=== PATIENT | male | born 1955 | race Caucasian/White ===

== ENCOUNTER 2017-04-14 00:18 | Emergency (ER) | payer OTHER ==
[~2017-04-14 00:18] MED LIST: CAT0.1 PO; INDOMETHACIN50 MG PO; LISINOPRIL20 MG PO; MEV20 PO; MOT800 PO; NOR10 PO; PRI20 PO; ZESTRIL20 MG PO; ZYL100 PO
[2017-04-14 02:49] VITALS: BP 170/90
== END 2017-04-14 02:49 | disposition home or self-care (01) ==
LOC: ED 00:18
DX: M10.071 Idiopathic gout, right ankle and foot (principal); M54.41 Lumbago with sciatica, right side; I10 Essential (primary) hypertension
CPT/HCPCS: J1885

== ENCOUNTER 2017-06-27 02:44 | Emergency (ER) | payer OTHER ==
[2017-06-27 03:58] LABS: CALCIUM 8.7 mg/dL (8.5-10.1); CARBON DIOXIDE 28.4 mmol/L (21-32); CREATININE SERUM 2.3 mg/dL (0.7-1.3); POTASSIUM SERUM 3.9 mmol/L (3.5-5.1)
[2017-06-27 04:30] VITALS: BP 164/98
== END 2017-06-27 04:30 | disposition home or self-care (01) ==
LOC: ED 02:44
PROVIDERS: Emergency Medicine
DX: M10.9 Gout, unspecified (principal); I12.9 Hypertensive chronic kidney disease with stage 1 through stage 4 chronic kidney disease, or unspecified chronic kidney disease; N18.9 Chronic kidney disease, unspecified
CPT/HCPCS: 36415; J1885; J7512

== ENCOUNTER 2017-08-15 03:13 | Emergency (ER) | payer OTHER ==
[2017-08-15 03:55] VITALS: BP 155/77
== END 2017-08-15 03:55 | disposition home or self-care (01) ==
LOC: ED 03:13
DX: T78.40XA Allergy, unspecified, initial encounter (principal); I10 Essential (primary) hypertension; X58.XXXA Exposure to other specified factors, initial encounter

== ENCOUNTER 2017-12-06 20:53 | Emergency (ER) | payer OTHER ==
[2017-12-06 22:43] VITALS: BP 143/85
== END 2017-12-06 22:43 | disposition home or self-care (01) ==
LOC: ED 20:53
DX: M10.062 Idiopathic gout, left knee (principal); M10.072 Idiopathic gout, left ankle and foot; M10.071 Idiopathic gout, right ankle and foot; I10 Essential (primary) hypertension
CPT/HCPCS: J1885

== ENCOUNTER 2018-06-11 00:03 | Emergency (ER) | payer MEDICAID ==
[~2018-06-11] VITALS: Ht 172.7 cm; Wt 107.0 kg
[2018-06-11 00:14] VITALS: Ht 172.7 cm; Wt 107.0 kg
[2018-06-11 04:15] VITALS: BP 149/88
== END 2018-06-11 04:15 | disposition home or self-care (01) ==
LOC: ED 00:03
DX: H05.221 Edema of right orbit (principal); H10.11 Acute atopic conjunctivitis, right eye; I10 Essential (primary) hypertension
CPT/HCPCS: J1200; J7512

== ENCOUNTER 2018-09-04 09:02 | Emergency (ER) | payer MEDICAID ==
[~2018-09-04] VITALS: Ht 172.7 cm; Wt 106.3 kg
[2018-09-04 10:34] VITALS: BP 151/88
== END 2018-09-04 10:34 | disposition home or self-care (01) ==
LOC: ED 09:02
DX: M10.062 Idiopathic gout, left knee (principal); I10 Essential (primary) hypertension
CPT/HCPCS: J1885; J2930

== ENCOUNTER 2018-10-21 21:57 | Emergency (ER) | payer OTHER ==
[~2018-10-21] VITALS: Ht 172.7 cm; Wt 103.6 kg
[2018-10-21 22:36] VITALS: BP 159/89
== END 2018-10-21 22:36 | disposition home or self-care (01) ==
LOC: ED 21:57
DX: H10.13 Acute atopic conjunctivitis, bilateral (principal); I10 Essential (primary) hypertension; M10.9 Gout, unspecified

== ENCOUNTER 2018-12-25 22:34 | Emergency (ER) | payer OTHER ==
[~2018-12-25] VITALS: Ht 175.3 cm; Wt 96.6 kg
[2018-12-25 22:42] VITALS: BP 156/85; Ht 175.3 cm; Wt 96.6 kg
== END 2018-12-26 00:28 | disposition left against medical advice (07) ==
LOC: ED 22:34
DX: Z53.21 Procedure and treatment not carried out due to patient leaving prior to being seen by health care provider (principal)

== ENCOUNTER 2019-03-01 08:27 | Emergency (ER) | payer OTHER | END 2019-03-01 11:05 | disposition home or self-care (01) | LOC: ED 08:27 ==

== ENCOUNTER 2019-08-08 10:03 | Emergency (ER) | payer OTHER ==
[~2019-08-08] VITALS: Ht 175.3 cm; Wt 88.0 kg
[2019-08-08 10:10] VITALS: Ht 175.3 cm; Wt 88.0 kg
[2019-08-08 13:41] VITALS: BP 135/86
== END 2019-08-08 13:41 | disposition home or self-care (01) ==
LOC: ED 10:03
DX: M10.9 Gout, unspecified (principal); I10 Essential (primary) hypertension
CPT/HCPCS: J1885

== ENCOUNTER 2019-09-04 11:11 | Emergency (ER) | payer OTHER ==
[~2019-09-04] VITALS: Ht 175.3 cm; Wt 88.9 kg
[2019-09-04 11:20] VITALS: Ht 175.3 cm; Wt 88.9 kg
[2019-09-04 13:14] VITALS: BP 168/82
== END 2019-09-04 13:14 | disposition home or self-care (01) ==
LOC: ED 11:11
DX: T63.391A Toxic effect of venom of other spider, accidental (unintentional), initial encounter (principal); I10 Essential (primary) hypertension; Y92.89 Other specified places as the place of occurrence of the external cause
CPT/HCPCS: J0696; J1885

== ENCOUNTER 2019-09-19 10:15 | Emergency (ER) | payer OTHER ==
[~2019-09-19] VITALS: Ht 175.3 cm; Wt 86.6 kg
[2019-09-19 10:29] VITALS: Ht 175.3 cm; Wt 86.6 kg
[2019-09-19 12:00] VITALS: BP 152/73
== END 2019-09-19 12:01 | disposition home or self-care (01) ==
LOC: ED 10:15
DX: M10.9 Gout, unspecified (principal); I10 Essential (primary) hypertension
CPT/HCPCS: J1100; J1885

== ENCOUNTER 2019-12-10 04:05 | Emergency (ER) | payer OTHER ==
[~2019-12-10] VITALS: Ht 175.3 cm; Wt 82.6 kg
[2019-12-10 04:10] VITALS: BP 139/78; Ht 175.3 cm; Wt 82.6 kg
== END 2019-12-10 05:18 | disposition home or self-care (01) ==
LOC: ED 04:05
DX: M25.462 Effusion, left knee (principal); M25.562 Pain in left knee; I10 Essential (primary) hypertension; M10.9 Gout, unspecified
CPT/HCPCS: J1100; J1885